=== PATIENT | female | born 1960 | race Hispanic/Latino ===

== ENCOUNTER → 2017-11-22 | Outpatient (CLI) | payer OTHER | END | disposition home or self-care (01) | LOC: SHCH 14:56 | PROVIDERS: ATTEND Internal Medicine Cardiovascular Disease | DX: I10 Essential (primary) hypertension (principal); R00.2 Palpitations | CPT/HCPCS: 93306 ==

== ENCOUNTER → 2018-12-13 | Outpatient (CLI) | payer OTHER | END | disposition home or self-care (01) | LOC: RAH 11:14 | PROVIDERS: ATTEND Internal Medicine | DX: M54.2 Cervicalgia (principal) | CPT/HCPCS: 72040 ==

== ENCOUNTER 2019-10-24 18:03 | Emergency (ER) | payer OTHER ==
[2019-10-24 19:24] LABS: BASOPHILS % (AUTO) 0.5 % (0.0-5.0); EOSINOPHILS % (AUTO) 0.5 % (0.0-8.0); HEMATOCRIT 40.4 % (36-48); LYMPHOCYTES % (AUTO) 18.9 % (21.0-51.0); MEAN CORPUSCULAR HEMOGLOBIN 31.5 pg (27.0-33.0); MEAN CORPUSCULAR HGB CONC 34.7 g/dL (32.0-36.0); MEAN CORPUSCULAR VOLUME 90.8 fL (79-99); MONOCYTES % (AUTO) 11.4 % (3.0-13.0); NEUTROPHILS % (AUTO) 68.4 % (40.0-77.0); PLATELET COUNT (AUTO) 377 K/uL (130-400); RED BLOOD CELL COUNT(AUTO) 4.45 MIL/uL (4.00-5.50); RED CELL DISTRIBUTION WIDTH 12.4 % (11.0-15.5); WHITE BLOOD COUNT (AUTO) 10.6 K/uL (4.8-10.8)
[2019-10-24 19:30] LABS: CREATININE 0.8 mg/dL (0.5-1.5); POTASSIUM 3.4 mmol/L (3.5-5.1)
[2019-10-24 19:35] LABS: INR 0.96 (0.85-1.15); PROTHROMBIN TIME 10.1 SEC (9.6-11.6)
[2019-10-24 19:43] LABS: ALBUMIN 3.7 g/dL (3.5-5.0); BILIRUBIN,TOTAL 0.4 mg/dL (0.2-1.0); TOTAL PROTEIN, SERUM 8.3 g/dL (6.0-8.3)
[2019-10-24 19:45] LABS: THYROID STIMULATING HORMONE 2.69 uIU/mL (0.36-3.74)
[2019-10-24 20:12] LABS: B-TYPE NATRIURETIC PEPTIDE 47 pg/mL (0-100)
== END 2019-10-24 20:36 | disposition home or self-care (01) ==
LOC: EDH 18:03
DX: R00.2 Palpitations (principal); R06.02 Shortness of breath; R53.1 Weakness; I10 Essential (primary) hypertension; Z88.0 Allergy status to penicillin; Z90.710 Acquired absence of both cervix and uterus; Z90.49 Acquired absence of other specified parts of digestive tract
CPT/HCPCS: 36415; 71045; 80053; 82550; 83735; 83880; 84443; 84484; 85025; 85610; 85730; 93005

== ENCOUNTER 2019-11-21 01:06 | Emergency (ER) | payer OTHER ==
[2019-11-21] MEDS ORDERED: MAG HYDROX/AL HYDROX/SIMETH ES 30 ML SUSP UDCUP ONE (01:31)
[2019-11-21] MEDS ORDERED: LIDOCAINE HCL 2% VISCOUS 15 ML UDCUP ONE (01:31)
[2019-11-21] MEDS ORDERED: PANTOPRAZOLE SODIUM 40 MG TABLET.DR ONE (01:32)
[2019-11-21] MEDS ORDERED: DiphenhydrAMINE HCL 50 MG/ML VIAL ONE (01:32)
== END 2019-11-21 03:20 | disposition home or self-care (01) ==
LOC: EDH 01:06
DX: F41.1 Generalized anxiety disorder (principal); R00.2 Palpitations; R10.13 Epigastric pain; I10 Essential (primary) hypertension; Z90.710 Acquired absence of both cervix and uterus; Z90.49 Acquired absence of other specified parts of digestive tract; Z88.0 Allergy status to penicillin
CPT/HCPCS: 71046; 93005; 96372; 99283; J1200